=== PATIENT | male | born 1985 | race Caucasian/White ===

== ENCOUNTER 2022-02-15 14:55 | Emergency (ER) | payer MEDICAID ==
[~2022-02-15] VITALS: Ht 170.2 cm; Wt 99.8 kg
--- NOTE | 2022-02-15 16:15 | NUR ---
[email or web address], medical screening exam in progress
[2022-02-15] MEDS ORDERED: IV NORMAL SALINE 1000 ML BAG IV ONE (16:45)
--- NOTE | 2022-02-15 16:49 | NUR ---
Patient is in CT scan at this time
[2022-02-15 17:18] LABS: HEMATOCRIT 40.4 % (36.7-47.1); MEAN CORPUSCULAR HEMOGLOBIN 30.9 uug (23.8-33.4); MEAN CORPUSCULAR VOLUME 91.7 fL (73.0-96.2); PLATELET COUNT (AUTO) 197 K/uL (152-348)
[2022-02-15 17:24] LABS: CARBON DIOXIDE 29 mmol/L (21-32); CHLORIDE 102 mmol/L (98-107); CREATININE 1.2 mg/dL (0.6-1.3); GLUCOSE 100 mg/dL (74-106); POTASSIUM 4.3 mmol/L (3.5-5.1); UREA NITROGEN, BLOOD 16 mg/dL (7-18)
[2022-02-15 17:33] LABS: ALANINE AMINOTRANSFERASE 62 U/L (16-63); ALKALINE PHOSPHATASE 51 U/L (50-136); ASPARTATE AMINOTRANSFERASE 52 U/L (15-37); BILIRUBIN,DIRECT 0.1 mg/dL (0.0-0.2); BILIRUBIN,TOTAL 0.3 mg/dL (0.2-1.0); TOTAL PROTEIN, SERUM 7.6 g/dL (6.4-8.2)
--- NOTE | 2022-02-15 17:37 | NUR ---
ER registration Braydon, nursing distribution center supervisor Diamond and 3rd floor staff nurse Angelica notified re: admission
--- NOTE | 2022-02-15 17:56 | NUR ---
Patient is refusing admission@this time. MD is aware.
--- NOTE | 2022-02-15 18:15 | NUR ---
IV removed. Catheter intact and site benign. Pressure and 4x4 gauze applied to site. No bleeding noted. Patient does not wish to proceed with medical care recommended by Dr. Almonte. Patient given information related to possible complications, up to and including , which could occur as a result of leaving the hospital at this time. Patient verbalized understanding of risks involved due to leaving against medical advice. Patient signed AMA form.
[2022-02-15] MEDS ORDERED: ACET-2154 PO (18:21)
== END 2022-02-15 18:26 | disposition left against medical advice (07) ==
LOC: ER 14:55
DX: U07.1 COVID-19 (principal); R55 Syncope and collapse; R00.1 Bradycardia, unspecified
CPT/HCPCS: 36415; 70450; 71045; 80048; 80076; 84484; 85025; 85730; 87426; 93005; 96360; 99285; J7040; A4663